=== PATIENT | male | born 1985 | race Caucasian/White ===

== ENCOUNTER 2016-09-11 11:32 | Inpatient (IN) | payer BC ==
[~2016-09-11] VITALS: Ht 188 cm; Wt 119.8 kg
[~2016-09-11 11:32] MED LIST: VICODIN 5-3001 EACH PO
[2016-09-11 13:23] LABS: EOSINOPHIL (%) 0 % (0-5); IMMATURE GRANULOCYTE (%) 0.7 % (0.0-0.7); IMMATURE GRANULOCYTE COUNT 0.1 K/uL; MCH 29.9 PG (29.0-34.0); MCV 88.1 FL (86-99); MEAN PLAT.VOLUME 10.3 uM^3 (9.0-12.4); MONOCYTE (%) 4.7 % (3-12); MONOCYTE COUNT 0.6 K/uL (0-0.8); NEUTROPHIL (%) 87.3 % (45-76); PLATELET COUNT 173 K/uL (156-360); RBC DIS.WIDTH-CV 12.4 % (11.8-14.6); RED BLOOD COUNT 5.11 M/uL (4.00-5.50); WHITE BLOOD COUNT 13.7 K/uL (4.1-10.2)
[2016-09-11 13:34] LABS: CHLORIDE 106 mEq/L (99-109); POTASSIUM 3.9 mEq/L (3.7-5.4); SODIUM 138 mEq/L (136-147)
[2016-09-11 13:36] LABS: GLUCOSE 125 mg/dL (70-99)
[2016-09-11 13:37] LABS: ANION GAP 8 MEQ/L (2-14)
[2016-09-11 13:38] LABS: TOTAL BILIRUBIN 1.1 mg/dL (0.0-1.0)
[2016-09-11 13:39] LABS: SERUM ETHYL ALCOHOL < 10 mg/dL
[2016-09-11 13:40] LABS: ALKALINE PHOSPHATASE 52 IU/L (3-129); GFR ESTIMATE (CALCULATED) > 59 mL/min/
[2016-09-11 13:41] LABS: UREA NITROGEN (BUN) 11 mg/dL (9-23)
[2016-09-11 14:08] LABS: INTER. NORMALIZED RATIO 1.1; PROTHROMBIN TIME 11.3 (9.2-11.2)
[2016-09-11 14:57] LABS: ADD MIUA? YES; BILIRUBIN NEGATIVE; BLOOD LARGE; COLOR YELLOW ((YELLOW)); GLUCOSE (STRIP) 50; KETONES 20; LEUKOCYTES NEGATIVE; NITRITE NEGATIVE; PROTEIN (STRIP) 30; SPECIFIC GRAVITY 1.029 (1.000-1.030); UROBILINOGEN 0.2 MG/DL (0.2-1.0)
[2016-09-11 15:00] LABS: BACTERIA RARE /HPF; EPITHELIAL CELLS NONE SEEN /HPF; HYALINE CASTS 0-5 /LPF; MUCUS 4+ /LPF; RED BLOOD CELLS TNTC /HPF (0-5); UCUL ADDED? NO; WHITE BLOOD CELLS 0-5 /HPF (0-5)
[2016-09-11 15:20] LABS: AMPHETAMINE NEGATIVE (500 ng/mL); BARBITURATES NEGATIVE (200 ng/mL); BENZODIAZEPINES NEGATIVE (150 ng/mL); COCAINE NEGATIVE (150 ng/mL); INTERNAL CONTROLS VALID? YES; METHADONE NEGATIVE (200 ng/mL); METHAMPHETAMINE NEGATIVE (500 ng/mL); OPIATES (MORPHINE) NEGATIVE (100 ng/mL); OXYCODONE NEGATIVE (100 ng/mL); PHENCYCLIDINE NEGATIVE (25 ng/mL); PROPOXYPHENE NEGATIVE (300 ng/mL); THC CANNABINOIDS NEGATIVE (50 ng/mL); TRICYCLIC ANTIDEPRESSANTS NEGATIVE (300 ng/mL)
[2016-09-11 15:42] LABS: APPEARANCE CLEAR/COLORLESS; CSF EOSINOPHILS 0 % (0-25); MONO RAW COUNT 1; MONONUCLEAR WBC'S 100 % (50-90); POLYNUCLEAR WBC'S 0 % (0-3); RED CELL AREA COUNTED 18; RED CELL COUNT 4 /MM^3 (0-1); RED CELL DILUTION 1; WBC AREA COUNTED 18; WBC DILUTION 1; WHITE CELL COUNT 1 /MM^3 (0-5); WHITE CELL RAW COUNT 1
[2016-09-11 20:19] VITALS: BP 121/74
[2016-09-11 23:05] LABS: EOSINOPHIL (%) 0.4 % (0-5); IMMATURE GRANULOCYTE (%) 0.3 % (0.0-0.7); INSTRUMENT ABS NEUTROPHIL CT 7.5 K/uL; LYMPHOCYTE COUNT 1.7 K/uL (1.0-2.8); MCH 30.1 PG (29.0-34.0); MCHC 34.3 G/DL (30.0-36.0); MCV 87.6 FL (86-99); MEAN PLAT.VOLUME 10.1 uM^3 (9.0-12.4); MONOCYTE (%) 7.2 % (3-12); MONOCYTE COUNT 0.7 K/uL (0-0.8); NEUTROPHIL (%) 75.1 % (45-76); NEUTROPHIL COUNT 7.5 K/uL (1.8-6.4); PLATELET COUNT 156 K/uL (156-360); RBC DIS.WIDTH-CV 12.5 % (11.8-14.6); RBC DIS.WIDTH-SD 40.2 % (39-53); RED BLOOD COUNT 5.02 M/uL (4.00-5.50)
[2016-09-11 23:14] LABS: CHLORIDE 105 mEq/L (99-109); POTASSIUM 3.8 mEq/L (3.7-5.4); SODIUM 136 mEq/L (136-147)
[2016-09-11 23:16] LABS: GLUCOSE 94 mg/dL (70-99)
[2016-09-11 23:17] LABS: ANION GAP 7 MEQ/L (2-14)
[2016-09-11 23:19] LABS: TOTAL BILIRUBIN 1.1 mg/dL (0.0-1.0)
[2016-09-11 23:20] LABS: ALKALINE PHOSPHATASE 45 IU/L (3-129); GFR ESTIMATE (CALCULATED) > 59 mL/min/
[2016-09-11 23:21] LABS: UREA NITROGEN (BUN) 11 mg/dL (9-23)
[2016-09-11 23:26] LABS: INTER. NORMALIZED RATIO 1.1; PROTHROMBIN TIME 11.2 (9.2-11.2); PTT 26.4 (25-32)
[2016-09-12] VITALS: BP 129/73
[2016-09-12 06:44] LABS: HEMATOCRIT 44.5 % (38.0-50.0); MCH 30.2 PG (29.0-34.0); MCHC 34.2 G/DL (30.0-36.0); MCV 88.5 FL (86-99); MEAN PLAT.VOLUME 9.9 uM^3 (9.0-12.4); PLATELET COUNT 171 K/uL (156-360); RBC DIS.WIDTH-CV 12.5 % (11.8-14.6); RBC DIS.WIDTH-SD 40.8 % (39-53); RED BLOOD COUNT 5.03 M/uL (4.00-5.50); WHITE BLOOD COUNT 9.3 K/uL (4.1-10.2)
[2016-09-12 07:09] LABS: ANION GAP 12 MEQ/L (2-14); C-REACTIVE PROTEIN 5.8 MG/L (0-10); CHLORIDE 105 MEQ/L (99-109); GFR ESTIMATE (CALCULATED) > 59 mL/min/; GLUCOSE 96 mg/dL (70-99); SAMPLE HEMOLYSIS CHECK 0; SAMPLE ICTERIC CHECK 0; SAMPLE LIPEMIA CHECK 0; SODIUM 139 MEQ/L (136-147); UREA NITROGEN (BUN) 13 mg/dL (9-23)
[2016-09-12 08:24] VITALS: BP 118/69
[2016-09-12 10:13] LABS: LYME DISEASE SEROLOGY SCREEN NEGATIVE (NEGATIVE)
[2016-09-12 10:46] LABS: ERTH.SED.RATE 26 MM/HR (0-15)
[2016-09-12 11:44] VITALS: BP 137/77
[2016-09-12 15:30] VITALS: BP 118/64
[2016-09-12 19:05] VITALS: BP 115/61
[2016-09-13 00:20] VITALS: BP 122/66
[2016-09-13 02:37] LABS: AMPHETAMINES QUANT VALUE 0 NG/ML; BARBITUATES QUANT VALUE 0 NG/ML; BENZODIAZEPINES QUANT VALUE 0 NG/ML; BENZODIAZEPINES, URINE SCREEN Negative (200 ng/mL); MARIJUANA QUANT VALUE 0 NG/ML; OPIATES QUANTITATIVE VALUE 0 NG/ML; PHENCYCLIDINE QUANT VALUE 0 NG/ML
[2016-09-13 03:38] VITALS: BP 125/63
[2016-09-13 07:50] VITALS: BP 126/82
[2016-09-13 09:41] LABS: LYME DISEASE SEROLOGY SCREEN NEGATIVE (NEGATIVE)
[2016-09-13 13:07] VITALS: BP 125/74
[2016-09-13 14:32] LABS: ADD MIUA? NO; BILIRUBIN NEGATIVE; BLOOD NEGATIVE; COLOR YELLOW ((YELLOW)); GLUCOSE (STRIP) NEGATIVE; KETONES 5; LEUKOCYTES NEGATIVE; NITRITE NEGATIVE; PROTEIN (STRIP) NEGATIVE; SPECIFIC GRAVITY 1.023 (1.000-1.030)
[2016-09-13 20:00] VITALS: BP 126/69
[2016-09-14 04:40] VITALS: BP 136/78
[2016-09-14 08:25] VITALS: BP 118/71
[2016-09-14 12:23] VITALS: BP 111/64
[2016-09-14 15:35] VITALS: BP 126/68
[2016-09-14 19:14] VITALS: BP 126/62
[2016-09-14 20:29] LABS: HSV CSF Spec Source CSF (())
[2016-09-15 04:30] VITALS: BP 135/84
[2016-09-15 06:34] LABS: HEMATOCRIT 45.9 % (38.0-50.0); MCH 29.9 PG (29.0-34.0); MCV 88.1 FL (86-99); MEAN PLAT.VOLUME 10.1 uM^3 (9.0-12.4); PLATELET COUNT 160 K/uL (156-360); RBC DIS.WIDTH-CV 12.1 % (11.8-14.6); RBC DIS.WIDTH-SD 39.3 % (39-53); RED BLOOD COUNT 5.21 M/uL (4.00-5.50); WHITE BLOOD COUNT 7.5 K/uL (4.1-10.2)
[2016-09-15 06:59] LABS: ANION GAP 11 MEQ/L (2-14); CHLORIDE 101 MEQ/L (99-109); GFR ESTIMATE (CALCULATED) > 59 mL/min/; GLUCOSE 93 mg/dL (70-99); POTASSIUM 3.8 MEQ/L (3.7-5.4); SAMPLE HEMOLYSIS CHECK 0; SAMPLE ICTERIC CHECK 0; SAMPLE LIPEMIA CHECK 0; SODIUM 138 MEQ/L (136-147); UREA NITROGEN (BUN) 11 mg/dL (9-23)
[2016-09-15 07:48] VITALS: BP 121/73
[2016-09-15 11:20] VITALS: BP 102/68
[2016-09-15 16:16] VITALS: BP 123/70
[2016-09-15 21:13] VITALS: BP 119/72
[2016-09-15 23:33] VITALS: BP 121/67
[2016-09-16 06:21] VITALS: BP 137/79
[2016-09-16 07:47] VITALS: BP 135/77
[2016-09-16 11:43] VITALS: BP 131/79
[2016-09-16 15:50] VITALS: BP 147/73
[2016-09-16 23:22] VITALS: BP 128/81
[2016-09-17 07:20] VITALS: BP 105/61
[2016-09-17] MEDS ORDERED: CEFTRIAXONE2 G1 IM (09:13)
[2016-09-17] MEDS ORDERED: DOXYCYCLINE HY100 MG PO (09:14)
[2016-09-17] MEDS ORDERED: KEPPRA500 MG PO (09:15)
[2016-09-18 09:20] LABS: Rickettsia (RMSF) IgG Not Detected (Not Detected); Rickettsia (RMSF) IgM Not Detected (Not Detected)
[2016-09-18 11:05] LABS: LYME DISEASE SEROLOGY SCREEN NEGATIVE (NEGATIVE)
== END 2016-09-17 11:10 | DRG 72 ==
LOC: EME 11:32 → EDOF 17:56 → 5WEST 19:54 → 3EAST 09-12 08:00 → 5WEST 09-12 08:00 → 4EAST 09-12 08:00 → 3EAST 09-15 15:54
PROVIDERS: Emergency Medicine; Internal Medicine; Physician Assistant Medical
PROC: 009U3ZX Drainage of Spinal Canal, Percutaneous Approach, Diagnostic (ICD-10-PCS; principal; 2016-09-12)
DX: G93.40 Encephalopathy, unspecified (principal); G47.33 Obstructive sleep apnea (adult) (pediatric); L40.9 Psoriasis, unspecified; R00.0 Tachycardia, unspecified; R31.9 Hematuria, unspecified; R56.9 Unspecified convulsions; K76.0 Fatty (change of) liver, not elsewhere classified; R50.9 Fever, unspecified; R51 Headache
CPT/HCPCS: 70450; 70553; 71010; 76705; 80048; 80053; 80306 90; 81003; 82140; 82945; 83605; 84157; 85025; 85025 91; 85027; 85610; 85651; 85730; 86140; 86611 90; 86617 90; 86618; 86618 90; 86757 90; 86788 90; 86789 90; 87040; 87070; 87086; 87177; 87205; 87529 90; 89051; 92526 GN; 92610 GN; 93005; 95819; 99281; 99285; G0378; G0480; J0133; J0696; J1630; J1650; J1953; J2405; J7030; J7050

== ENCOUNTER 2016-09-16 14:49 | Inpatient (IN) | payer BC ==
[~2016-09-16] VITALS: Ht 188 cm; Wt 99.8 kg
[2016-09-17] MEDS ORDERED: CEFTRIAXONE2 G1 IM (09:13)
[2016-09-17] MEDS ORDERED: DOXYCYCLINE HY100 MG PO (09:14)
[2016-09-17] MEDS ORDERED: KEPPRA500 MG PO (09:15)
[2016-09-17 11:28] VITALS: BP 116/70
[2016-09-17 15:15] VITALS: BP 120/65
[2016-09-17 23:22] VITALS: BP 116/67
[2016-09-18 04:19] VITALS: BP 111/67
[2016-09-18 05:59] LABS: HEMATOCRIT 44.1 % (38.0-50.0); MCH 30.1 PG (29.0-34.0); MCHC 34.7 G/DL (30.0-36.0); MCV 86.6 FL (86-99); MEAN PLAT.VOLUME 9.8 uM^3 (9.0-12.4); PLATELET COUNT 172 K/uL (156-360); RBC DIS.WIDTH-CV 12.3 % (11.8-14.6); RBC DIS.WIDTH-SD 38.5 % (39-53); RED BLOOD COUNT 5.09 M/uL (4.00-5.50); WHITE BLOOD COUNT 8.4 K/uL (4.1-10.2)
[2016-09-18 06:33] LABS: ALKALINE PHOSPHATASE 46 IU/L (3-129); ANION GAP 9 MEQ/L (2-14); CHLORIDE 102 MEQ/L (99-109); GFR ESTIMATE (CALCULATED) > 59 mL/min/; GLUCOSE 95 mg/dL (70-99); POTASSIUM 4.1 MEQ/L (3.7-5.4); SAMPLE HEMOLYSIS CHECK 0; SAMPLE ICTERIC CHECK 0; SAMPLE LIPEMIA CHECK 0; SODIUM 137 MEQ/L (136-147); UREA NITROGEN (BUN) 13 mg/dL (9-23)
[2016-09-18 15:05] VITALS: BP 112/70
[2016-09-19 05:32] VITALS: BP 104/57
[2016-09-19 16:20] VITALS: BP 115/69
[2016-09-20 05:13] VITALS: BP 115/55
[2016-09-20 15:18] VITALS: BP 115/70
[2016-09-21 04:41] VITALS: BP 89/50
[2016-09-21 08:38] VITALS: BP 96/82
[2016-09-21 15:48] VITALS: BP 118/72
[2016-09-22 04:44] VITALS: BP 115/60
[2016-09-22 15:00] VITALS: BP 100/57
[2016-09-22 15:03] LABS: E.chaffeensis IgM <1:20 (<1:20)
[2016-09-23 06:01] VITALS: BP 91/52
[2016-09-23 07:06] LABS: HEMATOCRIT 44.4 % (38.0-50.0); MCH 29.9 PG (29.0-34.0); MCHC 34.2 G/DL (30.0-36.0); MCV 87.2 FL (86-99); MEAN PLAT.VOLUME 10.6 uM^3 (9.0-12.4); PLATELET COUNT 193 K/uL (156-360); RBC DIS.WIDTH-CV 12.4 % (11.8-14.6); RBC DIS.WIDTH-SD 39.5 % (39-53); RED BLOOD COUNT 5.09 M/uL (4.00-5.50); WHITE BLOOD COUNT 6.9 K/uL (4.1-10.2)
[2016-09-23 07:30] LABS: ALKALINE PHOSPHATASE 41 IU/L (3-129); ANION GAP 9 MEQ/L (2-14); CHLORIDE 102 MEQ/L (99-109); GFR ESTIMATE (CALCULATED) > 59 mL/min/; GLUCOSE 89 mg/dL (70-99); POTASSIUM 4.4 MEQ/L (3.7-5.4); SAMPLE HEMOLYSIS CHECK 0; SAMPLE ICTERIC CHECK 0; SAMPLE LIPEMIA CHECK 0; SODIUM 136 MEQ/L (136-147); TOTAL BILIRUBIN 0.8 MG/DL (0.0-1.0); UREA NITROGEN (BUN) 12 mg/dL (9-23)
[2016-09-23 15:09] VITALS: BP 108/63
[2016-09-23] MEDS ORDERED: PROMETHAZINE HC25 M1 PO (19:55)
[2016-09-23] MEDS ORDERED: KEPPRA500 MG PO (19:55)
[2016-09-23] MEDS ORDERED: DOXYCYCLINE HY100 MG PO (19:55)
[2016-09-24 05:10] VITALS: BP 117/56
== END 2016-09-24 12:09 | DRG 945 ==
LOC: 3WEST 14:49
PROVIDERS: Physical Medicine & Rehabilitation Pain Medicine
PROC: F07M0ZZ Range of Motion and Joint Mobility Treatment of Musculoskeletal System - Whole Body (ICD-10-PCS; principal; 2016-09-17)
DX: R53.1 Weakness (principal); G93.40 Encephalopathy, unspecified; G47.30 Sleep apnea, unspecified; F17.290 Nicotine dependence, other tobacco product, uncomplicated; G40.909 Epilepsy, unspecified, not intractable, without status epilepticus; K76.0 Fatty (change of) liver, not elsewhere classified; L40.9 Psoriasis, unspecified; R13.10 Dysphagia, unspecified; E78.00 Pure hypercholesterolemia, unspecified; Z82.49 Family history of ischemic heart disease and other diseases of the circulatory system
CPT/HCPCS: 80053; 85027; 86666 90; 92507 GN; 92523 GN; 97530 GP; 97532 GN; J1650